=== PATIENT | male | born 1930 | race Caucasian/White ===

== ENCOUNTER 2016-11-19 09:37 | Emergency (ER) | payer MEDICARE, MEDICAID ==
[2016-11-19 12:29] VITALS: BP 184/69; PULSE 90; RESP 22; TEMP 97.7; O2SAT 98
== END 2016-11-19 12:37 | disposition home or self-care (01) ==
LOC: C.ER 09:37
DX: R31.9 Hematuria, unspecified (principal); R79.89 Other specified abnormal findings of blood chemistry; N40.0 Benign prostatic hyperplasia without lower urinary tract symptoms

== ENCOUNTER 2017-01-18 06:01 | Inpatient (IN) | payer MEDICARE, MEDICAID ==
[2016-12-31 09:08] VITALS: BMI 28.1
[2017-01-18] MEDS: Lidocaine 2% Jelly (Uro-Jet) ONE ×2 (07:47→12:42)
[2017-01-18] MEDS: cefTRIAXone IV 1 gm in Dextros 50 ML IVPB ONE ×2 (07:47→12:40)
[2017-01-18] MEDS ORDERED: Lactated Ringer's 500 ML IV ONE ×2 (07:47)
[2017-01-18] MEDS: Iohexol 240 (50 ml) ONE ×2 (07:48→12:42)
--- NOTE | 2017-01-18 13:26 | PCM.SURG1 ---
Surgeon's Initial Post Op Note - Surgeon's Notes Surgeon: Fred Ni Slot Host: none Type of Anesthesia: IV Sedation Pre-Operative Diagnosis: hematuria. azotemia Operative Findings: Urethral stricture. BPH. cystitis. bilat hydronephrosis Post-Operative Diagnosis: same Operation Performed: cysto. urethral dilation. bilat rtg pyelogram. bilat stent insertion. cystogram Specimen/Specimens Removed: urine Estimated Blood Loss: EBL {In ML}: 0 Blood Products Given: N/A Post-Op Condition: Good Date of Surgery/Procedure: 01/18/17 Time of Surgery/Procedure: 13:25
[2017-01-18] MEDS ORDERED: Propofol 10 mg/ml Inj (20 ML) ONE (13:30)
[2017-01-18] MEDS ORDERED: Etomidate 20 mg/10ml Inj IV ONE (13:32)
[2017-01-18] MEDS ORDERED: Sodium Chloride 0.9% 500 ML IV ONE (13:33)
[2017-01-18] MEDS ORDERED: HYDROmorphone 0.5 mg/0.5 ml ISec IVP PRN (13:47)
[2017-01-18] MEDS ORDERED: Sodium Chloride 0.9% 1,000 ML IV SCH (14:00)
--- NOTE | 2017-01-18 15:20 | RAD ---
PROCEDURE: Intraoperative Fluoroscopy. HISTORY: HEMATURIA FINDINGS: Fluoroscopic assistance was provided. 74.1 seconds fluoroscopy time utilized during this procedure. Radiation dose = 1.02 mGy.. Please
[2017-01-18] MEDS: Sodium Chloride 0.9% 1,000 ML IV SCH (19:20)
[2017-01-18] MEDS: HYDROmorphone 0.5 mg/0.5 ml ISec IVP PRN (19:39)
--- NOTE | 2017-01-18 19:41 | CP.PCM.CON ---
Past Patient History - Past Medical History & Family History Past Medical History?: Yes - Past Social History Smoking Status: Never Smoked - CARDIAC Hx Cardiac Disorders: Yes (CAD) Hx Hypercholesterolemia: Yes Hx Hypertension: Yes Hx Peripheral Vascular Disease: Yes - PULMONARY Hx Respiratory Disorders: Yes Hx Asthma: Yes Hx Chronic Obstructive Pulmonary Disease (COPD): Yes - NEUROLOGICAL Hx Neurological Disorder: Yes Hx Dementia: Yes - HEENT Hx HEENT Problems: Yes Hx Cataracts: Yes - RENAL Hx Chronic Kidney Disease: Yes Hx Renal Failure: Yes - ENDOCRINE/METABOLIC Hx Endocrine Disorders: Yes Hx Diabetes Mellitus Type 2: Yes - HEMATOLOGICAL/ONCOLOGICAL Hx Blood Disorders: No - INTEGUMENTARY Hx Dermatological Problems: No - MUSCULOSKELETAL/RHEUMATOLOGICAL Hx Musculoskeletal Disorders: No - GASTROINTESTINAL Hx Gastrointestinal Disorders: No - GENITOURINARY/GYNECOLOGICAL Hx Genitourinary Disorders: Yes Hx Prostate Problems: Yes - PSYCHIATRIC Hx Psychophysiologic Disorder: No Hx Substance Use: No - SURGICAL HISTORY Hx Surgeries: No - ANESTHESIA Hx Anesthesia: Yes Meds Allergies/Adverse Reactions: Allergies Allergy/AdvReac Type Severity Reaction Status Date / Time No Known Allergies Allergy Verified 11/19/16 10:07 - Medications Medications: Current Medications Amlodipine Besylate (Norvasc) 10 mg PO DAILY [facility] Clonidine HCl (Catapres) 0.1 mg PO Q6 PRN PRN Reason: SBP > 180 Hydromorphone HCl (Dilaudid) 0.5 mg IVP Q8H PRN PRN Reason: pain Last Admin: 01/18/17 19:39 Dose: 0.5 mg Sodium Chloride (Sodium Chloride 0.9%) 1,000 mls @ 50 mls/hr IV .Q20H [facility] Last Admin: 01/18/17 19:20 Dose: 50 mls/hr Insulin Human Regular (Novolin R) 0 unit SC ACHS [facility] PRN Reason: Protocol Physical Exam - Constitutional Appears: Well - Head Exam Head Exam: ATRAUMATIC, NORMAL INSPECTION, NORMOCEPHALIC - Eye Exam Eye Exam: EOMI, Normal appearance, PERRL Pupil Exam: NORMAL ACCOMODATION, PERRL - ENT Exam ENT Exam: Mucous Membranes Moist, Normal Exam - Neck Exam Neck exam: Positive for: Normal Inspection - Respiratory Exam Respiratory Exam: Decreased Breath Sounds - Cardiovascular Exam Cardiovascular Exam: REGULAR RHYTHM, +S1, +S2 - GI/Abdominal Exam GI & Abdominal Exam: Diminished Bowel Sounds, Soft - Rectal Exam Rectal Exam: Deferred Results - Vital Signs Recent Vital Signs: Last Vital Signs Temp 98.0 F 01/18/17 17:46 Pulse 85 01/18/17 17:46 Resp 20 01/18/17 17:46 BP 192/69 H 01/18/17 17:46 Pulse Ox 95 01/18/17 17:46 - Labs Labs: Laboratory Results - last 24 hr 01/18/17 01/18/17 08:30 16:42 POC Glucose (mg/dL) 83 154 H
[2017-01-18] MEDS ORDERED: (Novolin R) Insulin Human Regular 100 units/ml vial SC PRN (19:42)
--- NOTE | 2017-01-18 19:58 | RAD ---
HISTORY: HEMATURIA COMPARISON: No prior. FINDINGS: BOWEL: Normal. No obstruction. No free air. Moderate fecal loading is seen throughout the colon. BONES: Advanced degenerate disease seen throughout the visualized thoracolumbar spine. OTHER FINDINGS: Vascular calcifications are seen at the midline lower abdomen and bilateral pelvis soft tissues. Calcifications in the bilateral flanks are linear and not typical for urolithiasis. These may also be vascular. Consider follow-up unenhanced and pelvis CT for greater detail. IMPRESSION: Vascular calcifications appear linear the bilateral flanks and are not typical for urolithiasis however CT may be useful for greater detailed evaluation. Vascular calcifications more definite at the inferior abdomen and pelvis. Nonobstructive bowel gas pattern. No gross free intraperitoneal gas evident.
[2017-01-18] MEDS: (Novolin R) Insulin Human Regular 100 units/ml vial SC SCH (22:00)
[2017-01-18] MEDS: Ipratropium 0.02% Inhal Soln (0.5 mg/2.5 ml) UD IH SCH ×2 (22:42→23:34)
[2017-01-19] MEDS: Ipratropium 0.02% Inhal Soln (0.5 mg/2.5 ml) UD IH SCH ×5 (03:22→20:12)
--- NOTE | 2017-01-19 05:51 | HP ---
CHIEF COMPLAINT: Urinary problem. HISTORY OF PRESENT ILLNESS: Mr. Edson Combs is 86 years old male, resident of [facility] with multiple medical problems, history of coronary artery disease, hypertension, asthma, COPD, renal insufficiency, dementia, type 2 diabetes mellitus, was having problem with urine, was brought to [facility] for cystoscopy by Dr. Ni, but during analysis, Dr. Ni came to know the patient has hydronephrosis. Cystoscopy done, admitted the patient, patient is with renal failure. BUN is trending up. We called and consulted Dr. Sanjuanita Catherine. He saw the patient. PAST MEDICAL HISTORY: Prostate problem, renal insufficiency, coronary artery disease, hypercholesterolemia, hypertension, COPD, asthma, history of cataract. ALLERGIES: THE PATIENT IS NOT ALLERGIC WITH ANY MEDICATIONS. HABITS: No smoking, no drugs, no ethanol. FAMILY HISTORY: Noncontributory. REVIEW OF SYSTEMS: The patient was seen and examined on the bedside, looking comfortable. The patient is not a good historian. No fever, no chills. No nausea, vomiting or diarrhea. No headache, no dizziness. PHYSICAL EXAMINATION VITAL SIGNS: Temperature 98.0, pulse 85, respiratory rate 20, blood pressure 192/59, pulse oximetry 95. HEENT: Head, normocephalic and atraumatic. Eyes, PERRLA. Extraocular muscles intact. Conjunctivae clear. Nose patent. NECK: Supple. No carotid bruits. No JVD or thyromegaly. CHEST: Bilaterally symmetrical. HEART: S1 and S2 positive. LUNGS: Clear to auscultation. ABDOMEN: Soft. Bowel sounds positive. No organomegaly. EXTREMITIES: No edema. No cyanosis. NEUROLOGIC: The patient is awake and alert. Moving all 4 extremities. No focal deficits. MEDICATIONS: Reviewed by me. LABORATORY DATA: Sugar is 154. ASSESSMENT AND PLAN: Mr. Edson Combs is 86 years old male with history of asthma, hypertension, not very well controlled, seasonal allergies, coronary artery disease, benign prostatic hypertrophy, dementia, severe peripheral disease, came for cystoscopy with Dr. Ni. Discussion done with Dr. Ni. The patient admitted. The patient has history of hypercholesterolemia, history of cataract, diabetes mellitus. According to Dr. Marquita Ni, has urinary retention, urethral stricture, cystitis, hydronephrosis, urethral stricture was opened by Dr. Ni. The patient is seen by Dr. Cole Catherine, liquid waste treatment plant operator. Repeat labs and we will follow. Alondra Mcclelland MD [place]
[2017-01-19 07:20] LABS: HEMATOCRIT 32.4 % (35.0-51.0); MEAN CORPUSCULAR HEMOGLOBIN 27.7 pg (27.0-31.0); MEAN CORPUSCULAR HGB CONC 33.1 g/dL (33.0-37.0); MEAN PLATELET VOLUME 8.7 fL (7.2-11.7)
[2017-01-19 07:39] LABS: MEAN CELL VOLUME 83.5 fL (80.0-94.0)
[2017-01-19 08:04] LABS: POTASSIUM 5.4 mmol/L (3.6-5.2)
[2017-01-19 08:06] LABS: IRON 30 ug/dL (49-181)
[2017-01-19 08:07] LABS: CALCIUM 8.5 mg/dl (8.6-10.4)
[2017-01-19 08:28] LABS: THYROID STIMULATING HORMONE 1.91 mIU/L (0.46-4.68)
[2017-01-19] MEDS: (Novolin R) Insulin Human Regular 100 units/ml vial SC SCH ×5 (08:34→21:40)
[2017-01-19] MEDS: Fluticasone-Salmeterol 500-50mcg Diskus IH SCH ×2 (09:15→20:12)
[2017-01-19] MEDS: Fluticasone Nasal 50 mcg/Spray NS SCH (11:15)
--- NOTE | 2017-01-19 14:25 | CP.PCM.PN ---
Subjective - Date & Time of Evaluation Date of Evaluation: 01/19/17 Time of Evaluation: 11:20 - Subjective Subjective: clinically same Objective - Vital Signs/Intake and Output Vital Signs (last 24 hours): Temp Pulse Resp BP Pulse Ox 98.8 F 82 20 167/69 H 96 01/19/17 07:00 01/19/17 07:00 01/19/17 07:00 01/19/17 11:14 01/19/17 07:00 Intake and Output: 01/19/17 01/19/17 06:59 18:59 Intake Total 1300 Output Total 850 Balance 450 - Medications Medications: Current Medications Acetaminophen (Tylenol 325mg Tab) 650 mg PO Q4 PRN PRN Reason: Pain Amlodipine Besylate (Norvasc) 10 mg PO DAILY [facility] Last Admin: 01/19/17 11:15 Dose: 10 mg Aspirin (Ecotrin) 81 mg PO DAILY [facility] Last Admin: 01/19/17 11:14 Dose: 81 mg Clonidine HCl (Catapres) 0.1 mg PO Q6 PRN PRN Reason: SBP > 180 Enalapril Maleate (Vasotec) 10 mg PO BID [facility] Last Admin: 01/19/17 11:14 Dose: 10 mg Ergocalciferol (Drisdol 50,000 Intl Units Cap) 1 cap PO QWK [facility] Fluticasone Propionate (Flonase) 1 spr NS DAILY [facility] Last Admin: 01/19/17 11:15 Dose: 1 spr Furosemide (Lasix) 40 mg PO DAILY [facility] Last Admin: 01/19/17 11:14 Dose: 40 mg Hydromorphone HCl (Dilaudid) 0.5 mg IVP Q8H PRN PRN Reason: pain Last Admin: 01/18/17 19:39 Dose: 0.5 mg Sodium Chloride (Sodium Chloride 0.9%) 1,000 mls @ 50 mls/hr IV .Q20H [facility] Last Admin: 01/18/17 19:20 Dose: 50 mls/hr Insulin Human NPH (Novolin N) 10 unit SC ACD [facility] Insulin Human Regular (Novolin R) 0 unit SC ACHS [facility] PRN Reason: Protocol Last Admin: 01/19/17 12:47 Dose: 2 unit Insulin Human Regular (Novolin R) 0 unit SC ACHS PRN; Protocol PRN Reason: Serum glucose Ipratropium Alpha (Atrovent) 0.5 mg IH RQ4 [facility] Last Admin: 01/19/17 11:15 Dose: Not Given Lactulose (Enulose) 10 gm PO HS PRN PRN Reason: Constipation Lamotrigine (Lamictal) 25 mg PO BID [facility] Last Admin: 01/19/17 11:15 Dose: 25 mg Loratadine (Claritin) 10 mg PO QPM [facility] Memantine (Namenda) 5 mg PO BID [facility] Last Admin: 01/19/17 11:14 Dose: 5 mg Montelukast Sodium (Singulair) 10 mg PO QPM [facility] Fluticasone/Salmeterol (Advair Diskus 500/50) 1 puff IH RBID [facility] Last Admin: 01/19/17 09:15 Dose: Not Given Tamsulosin HCl (Flomax) 0.4 mg PO DAILY [facility] Last Admin: 01/19/17 11:14 Dose: 0.4 mg - Labs Labs: 01/19/17 07:06 01/19/17 07:06 - Constitutional Appears: Well - Head Exam Head Exam: ATRAUMATIC, NORMAL INSPECTION, NORMOCEPHALIC - Eye Exam Eye Exam: EOMI, Normal appearance, PERRL Pupil Exam: NORMAL ACCOMODATION, PERRL - ENT Exam ENT Exam: Mucous Membranes Moist, Normal Exam - Neck Exam Neck Exam: Full ROM, Normal Inspection. absent: Lymphadenopathy - Respiratory Exam Respiratory Exam: Decreased Breath Sounds - Cardiovascular Exam Cardiovascular Exam: REGULAR RHYTHM, +S1, +S2 - GI/Abdominal Exam GI & Abdominal Exam: Soft, Diminished Bowel Sounds - Rectal Exam Rectal Exam: Deferred
[2017-01-19] MEDS ORDERED: cefTRIAXone IV 1 gm in Dextros 1 GM in Dextrose 5% In Water 50 ML IVPB SCH (15:30)
[2017-01-19] MEDS: (Novolin N) Insulin Human Isophane (NPH) 100 u/ml 10 ml vial SC SCH (17:30)
[2017-01-19 18:29] LABS: RBC URINE 2105 /hpf (0-3); URINE BACTERIA MOD (<OCC); WBC CLUMPS FEW /hpf; WBC URINE 259 /hpf (0-5)
[2017-01-19 18:31] LABS: URINE BILIRUBIN NEGATIVE (NEGATIVE); URINE BLOOD LARGE (NEGATIVE); URINE COLOR LIGHT RED (YELLOW); URINE GLUCOSE (UA) NEGATIVE (Normal); URINE KETONE NEGATIVE (NEGATIVE)
[2017-01-19 18:32] LABS: URINE LEUKOCYTE ESTERASE MODERATE Leu/uL (Negative); URINE PROTEIN 100 mg/dL (NEGATIVE); URINE UROBILINOGEN 0.2 mg/dL (0.2-1.0)
[2017-01-19] MEDS: Sodium Chloride 0.9% 1,000 ML IV SCH (22:21)
--- NOTE | 2017-01-19 22:32 | PN ---
DATE: SUBJECTIVE: The patient is an 86-year-old male. The patient is seen and examined at the bedside early in the morning. Looking comfortable. No nausea or vomiting. No fever, no chills. No headache. No dizziness. No chest pain or palpation. Appetite is appropriate. PHYSICAL EXAMINATION: VITAL SIGNS: Temperature 97.5, pulse 81, blood pressure 141/68 and respiratory rate 20. HEENT: Head: Normocephalic and atraumatic. Eyes: PERRLA. Extraocular muscles intact. Conjunctivae clear. Nose patent. Mucous membrane moist. NECK: Supple. No carotid bruits or thyromegaly. CHEST: Bilaterally symmetrical. HEART: S1 and S2 positive. LUNGS: Clear to auscultation. ABDOMEN: Soft. Bowel sounds positive. No organomegaly. EXTREMITIES: No edema. No cyanosis. NEUROLOGICAL: The patient is awake and alert. Moving all four extremities. No focal deficits. LABORATORY DATA: We do not have recent lab today, but reviewed old labs. MEDICATIONS: Advair, Atrovent, Catapres, ceftriaxone, Claritin, Dilaudid, vitamin D, aspirin, Flomax, Flonase, Lamictal, Lasix, Namenda, Norvasc, Novolin, enalapril, acetaminophen, NS and Singulair. ASSESSMENT AND PLAN: Mr. Edson Combs is an 86-year-old male with anemia; hyperkalemia; hyperchloremia; renal insufficiency, design checker is on the case; obstructive uropathy; uncontrolled diabetes mellitus; hypocalcemia; has bilateral hydronephrosis, cystoscopy done by Dr. 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 The patient has severe urethral stricture, dilated by Dr. Ni , getting antibiotics for that. Followup treatment as per design checker and urologist, and repeat labs. We will follow. Alondra Mcclelland MD [facility]
[2017-01-20 00:24] LABS: BASO # 0.1 K/uL (0.0-0.2); EOS # 0.1 K/uL (0.0-0.7); EOS % 0.9 % (0.0-4.0); HEMATOCRIT 31.4 % (35.0-51.0); MEAN CELL VOLUME 83.7 fL (80.0-94.0); MEAN CORPUSCULAR HEMOGLOBIN 27.6 pg (27.0-31.0); MEAN PLATELET VOLUME 8.8 fL (7.2-11.7); MONO # 0.5 K/uL (0.0-0.8); MONO % 4.7 % (0.0-10.0); RED CELL DISTRIBUTION WIDTH 14.9 % (11.5-14.5); WHITE BLOOD COUNT 10.4 K/uL (4.8-10.8)
[2017-01-20 00:36] LABS: POTASSIUM 4.8 mmol/L (3.6-5.2)
[2017-01-20 00:38] LABS: BILIRUBIN,TOTAL 0.2 mg/dL (0.2-1.3); TOTAL PROTEIN 6.6 g/dL (6.3-8.3)
[2017-01-20] MEDS: Ipratropium 0.02% Inhal Soln (0.5 mg/2.5 ml) UD IH SCH ×6 (00:38→20:16)
[2017-01-20 00:39] LABS: CALCIUM 8.7 mg/dl (8.6-10.4)
[2017-01-20] MEDS: HYDROmorphone 0.5 mg/0.5 ml ISec IVP PRN (04:59)
[2017-01-20] MEDS: (Novolin R) Insulin Human Regular 100 units/ml vial SC SCH ×5 (07:50→22:28)
[2017-01-20] MEDS: Fluticasone-Salmeterol 500-50mcg Diskus IH SCH ×2 (08:33→20:16)
[2017-01-20] MEDS: Sodium Chloride 0.9% 1,000 ML IV SCH ×2 (10:00→22:32)
[2017-01-20] MEDS: Fluticasone Nasal 50 mcg/Spray NS SCH (10:46)
[2017-01-20] MEDS ORDERED: cefTRIAXone IV 1 gm in Dextros 50 ML IVPB SCH (15:30)
[2017-01-20] MEDS: (Novolin N) Insulin Human Isophane (NPH) 100 u/ml 10 ml vial SC SCH (17:14)
--- NOTE | 2017-01-20 18:01 | US ---
PROCEDURE: Ultrasound of the Kidneys HISTORY: RENAL FAILURE COMPARISON: None available. TECHNIQUE: Sonogram of the kidneys. FINDINGS: RIGHT KIDNEY: Measures approximately 10.8 x 5.1 x 4.6 cm. Normal in size and contour. The right renal parenchyma exhibits increased echogenicity suggesting underlying medical renal disease. Clinical correlation recommended. No stone, solid mass lesion or hydronephrosis visualized. LEFT KIDNEY: Measures approximately 10.7 x 4.5 x 4.9 cm. Normal in size and contour. The left renal parenchyma exhibits increased echogenicity suggesting underlying medical renal disease. Clinical correlation recommended No stone, solid mass lesion or hydronephrosis visualized. . There is a small cyst measuring approximately 1.1 cm in greatest dimension seen midpole left kidney OTHER FINDINGS: None. IMPRESSION: No evidence of nephrolithiasis or hydronephrosis. Kidneys demonstrate echogenic parenchyma suggesting underlying medical renal disease. Clinical correlation recommended. Small cyst midpole left kidney.
--- NOTE | 2017-01-20 20:24 | CP.PCM.PN ---
Subjective - Date & Time of Evaluation Date of Evaluation: 01/20/17 Objective - Vital Signs/Intake and Output Vital Signs (last 24 hours): Temp Pulse Resp BP Pulse Ox 98.3 F 82 20 130/70 93 L 01/20/17 15:58 01/20/17 15:58 01/20/17 15:58 01/20/17 17:14 01/20/17 15:58 Intake and Output: 01/20/17 01/21/17 18:59 06:59 Intake Total 700 Output Total 450 Balance 250 - Medications Medications: Current Medications Acetaminophen (Tylenol 325mg Tab) 650 mg PO Q4 PRN PRN Reason: Pain Amlodipine Besylate (Norvasc) 10 mg PO DAILY [facility] Last Admin: 01/20/17 10:40 Dose: 10 mg Aspirin (Ecotrin) 81 mg PO DAILY [facility] Last Admin: 01/20/17 10:39 Dose: 81 mg Clonidine HCl (Catapres) 0.1 mg PO Q6 PRN PRN Reason: SBP > 180 Enalapril Maleate (Vasotec) 10 mg PO BID [facility] Last Admin: 01/20/17 17:14 Dose: 10 mg Ergocalciferol (Drisdol 50,000 Intl Units Cap) 1 cap PO QWK [facility] Fluticasone Propionate (Flonase) 1 spr NS DAILY [facility] Last Admin: 01/20/17 10:46 Dose: 1 spr Furosemide (Lasix) 40 mg PO DAILY [facility] Last Admin: 01/20/17 10:39 Dose: 40 mg Hydromorphone HCl (Dilaudid) 0.5 mg IVP Q8H PRN PRN Reason: pain Last Admin: 01/20/17 04:59 Dose: 0.5 mg Sodium Chloride (Sodium Chloride 0.9%) 1,000 mls @ 50 mls/hr IV .Q20H [facility] Last Admin: 01/20/17 10:00 Dose: Not Given Ceftriaxone Sodium (Rocephin Iv 1 Gm Duplex) 50 mls @ 50 mls/30 min IVPB Q24H [facility] Last Admin: 01/20/17 14:45 Dose: 50 mls/30 min Insulin Human NPH (Novolin N) 10 unit SC ACD [facility] Last Admin: 01/20/17 17:14 Dose: 10 unit Insulin Human Regular (Novolin R) 0 unit SC ACHS [facility] PRN Reason: Protocol Last Admin: 01/20/17 17:22 Dose: Not Given Insulin Human Regular (Novolin R) 0 unit SC ACHS PRN; Protocol PRN Reason: Serum glucose Ipratropium [place] (Atrovent) 0.5 mg IH RQ4 [facility] Last Admin: 01/20/17 20:16 Dose: 0.5 mg Lactulose (Enulose) 10 gm PO HS PRN PRN Reason: Constipation Lamotrigine (Lamictal) 25 mg PO BID [facility] Last Admin: 01/20/17 10:40 Dose: 25 mg Loratadine (Claritin) 10 mg PO QPM [facility] Last Admin: 01/20/17 17:14 Dose: 10 mg Memantine (Namenda) 5 mg PO BID [facility] Last Admin: 01/20/17 17:14 Dose: 5 mg Montelukast Sodium (Singulair) 10 mg PO QPM [facility] Last Admin: 01/20/17 17:14 Dose: 10 mg Fluticasone/Salmeterol (Advair Diskus 500/50) 1 puff IH RBID [facility] Last Admin: 01/20/17 20:16 Dose: 1 puff Tamsulosin HCl (Flomax) 0.4 mg PO DAILY [facility] Last Admin: 01/20/17 10:38 Dose: 0.4 mg - Labs Labs: 01/20/17 00:16 01/20/17 00:16 Assessment and Plan - Assessment and Plan (Free Text) Plan: Hemoglobin 10.4 sodium of 4.8 creatinine 3.4 albumin 3.3 Urine total protein 3920 C3-C4 unremarkable and Renal sonogram no evidence of nephrolithiasis or hydronephrosis Small cyst in the midpole left kidney
--- NOTE | 2017-01-21 00:32 | PN ---
DATE: SUBJECTIVE: The patient was seen and examined on the bedside, looking comfortable. No nausea, vomiting or diarrhea. No hematuria or hematochezia. No swelling of the legs. No chest pain or palpitations. No headache or dizziness. No fever. No chills. PHYSICAL EXAMINATION: VITAL SIGNS: Temperature 98.3, pulse 82, blood pressure 130/70, respiratory rate 20. HEENT: Head is normocephalic and atraumatic. Eyes; PERRLA. Extraocular muscles intact. Conjunctivae clear. Nose patent. Mucous membrane moist. NECK: Supple. No carotid bruits, JVD, or thyromegaly. CHEST: Bilaterally symmetrical. HEART: S1 and S2 positive. LUNGS: Clear to auscultation. ABDOMEN: Soft. Bowel sounds are present. No organomegaly. EXTREMITIES: No edema and no cyanosis. NEUROLOGIC: The patient is awake and alert. Moving all four extremities. No focal deficits. MEDICATIONS: Advair, Atrovent, Catapres, Claritin, Dilaudid, vitamin D, Ecotrin, lactulose, Flomax, Flonase, Lamictal, Lasix, Namenda, Norvasc, insulin, Rocephin, Singulair, Tylenol, and Vasotec. LABORATORY DATA: White blood cell 10.4, hemoglobin 10.4, hematocrit 31.4, and platelets 156. Sodium 141, potassium 4.8, BUN 51, creatinine 3.4, glucose 133. ASSESSMENT AND PLAN: Mr. Edson Combs is 86 years old male with anemia, renal insufficiency, insulin dependent diabetes mellitus, urinary tract infection, history of severe peripheral vascular disease, amputation of the above knee, severe anemia, renal biopsy shows no evidence of nephrolithiasis or hydronephrosis. Small cyst in the mid pole of the kidney. The patient has dementia, but very early stages. He came for cystoscopy, has cystitis. Shuttler and urologist on the case. The patient has obstructive uropathy, there was urethral stricture dilated by the urologist. Gastrointestinal [place]. Repeat labs. We will follow up. Alondra Mcclelland MD
[2017-01-21] MEDS: Ipratropium 0.02% Inhal Soln (0.5 mg/2.5 ml) UD IH SCH ×4 (00:47→11:01)
[2017-01-21] MEDS: (Novolin R) Insulin Human Regular 100 units/ml vial SC SCH ×2 (07:40→11:40)
--- NOTE | 2017-01-21 07:45 | OP ---
PROCEDURE DATE: 01/18/2017 PREOPERATIVE DIAGNOSES: 1. Azotemia. 2. Hematuria. POSTOPERATIVE DIAGNOSES: 1. Azotemia. 2. Hematuria. 3. Urinary retention. 4. Urethral stricture. 5. Bilateral hydronephrosis. PROCEDURE: 1. Cystoscopy. 2. Urethral dilation. 3. Bilateral retrograde pyelogram. 4. Bilateral ureteral stent insertion. 5. Cystogram. SURGEON: Marquita Ni MD DESCRIPTION OF PROCEDURE: Procedure was formed under video endoscopic control as well as under fluoroscopic control. Machine Tool Builder film of the abdomen was obtained. The patient was placed in the lithotomy position. Genitalia prepped and draped sterilely. Perioperative antibiotics were administered. A 22-Malian cystoscope sheath was introduced per urethra. There was noted to be stricture in the bulbous urethra. There is a tight dense stricture. The ureteral catheter was passed under direct vision through the stricture into the bladder. The stricture was dilated by pass of the 22-Malian cystoscope sheath over the catheter. The stricture was noted to be dense and tightly. The urethra and prostate were inspected. It was noted to be obstructing prostatic tissue. There is no bladder neck contracture. The prostatic urethra was approximately 2.5 cm length. The bladder was inspected. There is marked bladder trabeculation. There were bladder diverticula as well, which were inspected. There was diffuse marked cystitis. The volume within the bladder was approximately 500 mL. The ureteral orifices were identified. The orifices were noted to be mild laterally displaced and as well as mildly patulous. Iodinated contrast dye was instilled via a cone-tip catheter into the left ureteral orifice. There was noted to be moderate distal left hydronephrosis. The catheter cannot be inserted more proximally. A right retrograde pyelogram also demonstrated [id number] hydronephrosis. The 0.035 inch guidewire was inserted into the right ureteral orifice and passed up to the level of the kidney. Open-end catheter was used to perform retrograde ureteropyelogram. The retrograde pyelogram demonstrated moderate hydronephrosis. There was hydronephrotic drip obtained as well. A 6-Malian multi-length stent was inserted over the guidewire. Proper stent position within the right kidney was confirmed with fluoroscopy and endoscopy. Attention was then returned toward the left side. Open-ended catheter and guidewire were used to pass both to the level of the kidney. Retrograde pyelogram demonstrated [id number] hydronephrosis. The guidewire was reinserted. A 6-Malian multi-length stent was inserted over the guidewire. Proper stent position was confirmed with fluoroscopy and endoscopy. The cystoscope sheath removed. The guidewire had been reinserted through the cystoscope and clogged within the bladder. A 16-Malian Councill catheter was inserted over the guidewire. Proper position in the bladder was confirmed with performance of a cystogram under fluoroscopic control. The guidewire was removed. The Kendrick catheter was left in place. The bladder was drained. Bladder drainage was clear. Exam under anesthesia was performed. There was no abnormal pelvic mass fixation or induration. Prostate was smooth, approximately 25 g in size, without fixation, induration, or nodularity. The patient tolerated the procedure without complication. Marquita Ni MD cc: MD Alondra Gray MD Jayeshkumar Patel, MD
[2017-01-21 08:37] VITALS: PULSE 90; RESP 18; TEMP 97.5; O2SAT 95
[2017-01-21] MEDS: Fluticasone Nasal 50 mcg/Spray NS SCH (10:05)
--- NOTE | 2017-01-21 10:24 | CP.PCM.PN ---
Subjective - Date & Time of Evaluation Date of Evaluation: 01/21/17 Time of Evaluation: 10:29 - Subjective Subjective: Pt seen and examined at bedside this AM; offers no complaints. Objective - Vital Signs/Intake and Output Vital Signs (last 24 hours): Temp Pulse Resp BP Pulse Ox 97.5 F L 90 18 172/74 H 95 01/21/17 07:05 01/21/17 07:05 01/21/17 07:05 01/21/17 10:06 01/21/17 07:05 Intake and Output: 01/21/17 01/21/17 06:59 18:59 Intake Total 1200 Output Total 300 400 Balance 900 -400 - Medications Medications: Current Medications Acetaminophen (Tylenol 325mg Tab) 650 mg PO Q4 PRN PRN Reason: Pain Amlodipine Besylate (Norvasc) 10 mg PO DAILY [facility] Last Admin: 01/21/17 10:05 Dose: 10 mg Aspirin (Ecotrin) 81 mg PO DAILY [facility] Last Admin: 01/21/17 10:06 Dose: 81 mg Clonidine HCl (Catapres) 0.1 mg PO Q6 PRN PRN Reason: SBP > 180 Enalapril Maleate (Vasotec) 10 mg PO BID [facility] Last Admin: 01/21/17 10:05 Dose: 10 mg Ergocalciferol (Drisdol 50,000 Intl Units Cap) 1 cap PO QWK [facility] Fluticasone Propionate (Flonase) 1 spr NS DAILY [facility] Last Admin: 01/21/17 10:05 Dose: 1 spr Furosemide (Lasix) 40 mg PO DAILY [facility] Last Admin: 01/21/17 10:06 Dose: 40 mg Hydromorphone HCl (Dilaudid) 0.5 mg IVP Q8H PRN PRN Reason: pain Last Admin: 01/20/17 04:59 Dose: 0.5 mg Sodium Chloride (Sodium Chloride 0.9%) 1,000 mls @ 50 mls/hr IV .Q20H [facility] Last Admin: 01/20/17 22:32 Dose: 50 mls/hr Ceftriaxone Sodium (Rocephin Iv 1 Gm Duplex) 50 mls @ 50 mls/30 min IVPB Q24H [facility] Last Admin: 01/20/17 14:45 Dose: 50 mls/30 min Insulin Human NPH (Novolin N) 10 unit SC ACD [facility] Last Admin: 01/20/17 17:14 Dose: 10 unit Insulin Human Regular (Novolin R) 0 unit SC ACHS [facility] PRN Reason: Protocol Last Admin: 01/21/17 07:40 Dose: Not Given Insulin Human Regular (Novolin R) 0 unit SC ACHS PRN; Protocol PRN Reason: Serum glucose Ipratropium [place] (Atrovent) 0.5 mg IH RQ4 [facility] Last Admin: 01/21/17 07:18 Dose: Not Given Lactulose (Enulose) 10 gm PO HS PRN PRN Reason: Constipation Lamotrigine (Lamictal) 25 mg PO BID [facility] Last Admin: 01/21/17 10:05 Dose: 25 mg Loratadine (Claritin) 10 mg PO QPM [facility] Last Admin: 01/20/17 17:14 Dose: 10 mg Memantine (Namenda) 5 mg PO BID [facility] Last Admin: 01/21/17 10:06 Dose: 5 mg Montelukast Sodium (Singulair) 10 mg PO QPM [facility] Last Admin: 01/20/17 17:14 Dose: 10 mg Fluticasone/Salmeterol (Advair Diskus 500/50) 1 puff IH RBID [facility] Last Admin: 01/20/17 20:16 Dose: 1 puff Tamsulosin HCl (Flomax) 0.4 mg PO DAILY [facility] Last Admin: 01/21/17 10:06 Dose: 0.4 mg - Labs Labs: 01/20/17 00:16 01/20/17 00:16 - Constitutional Appears: Non-toxic - Head Exam Head Exam: ATRAUMATIC - Eye Exam Eye Exam: EOMI - ENT Exam ENT Exam: Mucous Membranes Moist - Neck Exam Neck Exam: Full ROM - Respiratory Exam Respiratory Exam: Clear to Ausculation Bilateral - Cardiovascular Exam Cardiovascular Exam: REGULAR RHYTHM - GI/Abdominal Exam GI & Abdominal Exam: Normal Bowel Sounds - Extremities Exam Extremities Exam: absent: Calf Tenderness - Back Exam Back Exam: absent: CVA tenderness (L), CVA tenderness (R) - Neurological Exam Neurological Exam: Awake - Skin Skin Exam: Warm Assessment and Plan - Assessment and Plan (Free Text) Assessment: JAE on CKD -Supervisor Shuttle Fitting up to 3.5 from 2.1 (2011) -BUN elevated as well -Urine Cytology negative for malignancy -s/p cystcopy and possible possible; f/u results -will trend chemistry, lytes Anemia;chronic and improved from previous -will monitor CAD -c/w current medical management HTN -c/w current medical management COPD Dementia -will monitor -already in alf DM2 -c/w insulin Prophylaxis Pepcid PO daily SCD Consistent carbohydrate diet All management as per Dr. Florin Benavidez PGY2
[2017-01-21] MEDS: Fluticasone-Salmeterol 500-50mcg Diskus IH SCH (11:01)
--- NOTE | 2017-01-21 12:04 | PCM.URO ---
Urology Progress Note - General General: No Complaints, Tolerating Diet - Subjective Abdominal Pain: No Flank Pain: No Nausea: No Vomiting: No Voiding Well: No (CATHETER IN PLACE) Hematuria: No Dsypnea: No Chest Pain: No - Objective Lab Studies: Reviewed (azotemia, proteinuria, hyperglycemia) Lab Results Last 24 Hours: Laboratory Results - last 24 hr 01/19/17 01/20/17 01/20/17 07:06 12:04 17:18 POC Glucose (mg/dL) 147 H 133 H Hemoglobin A1c 7.0 H Urine Collection Time Urine Total Volume Ur Protein 24 Hr Calc 01/20/17 01/20/17 01/21/17 19:40 21:31 06:18 POC Glucose (mg/dL) 262 H 93 Hemoglobin A1c Urine Collection Time 24 Urine Total Volume 1400 Ur Protein 24 Hr Calc 3920.0 H 01/21/17 11:21 POC Glucose (mg/dL) 134 H Hemoglobin A1c Urine Collection Time Urine Total Volume Ur Protein 24 Hr Calc Intake & Output: Intake & Output 01/20/17 01/21/17 01/21/17 18:59 06:59 18:59 Intake Total 700 1200 Output Total 450 300 400 Balance 250 900 -400 Intake: Intake, IV Amount 400 800 Right Forearm 400 800 Oral 300 400 Output: Urine 450 300 400 Urethral (Kendrick) 450 300 400 Other: # Bowel Movements 0 Vital Signs: Vital Signs - 24 hr 01/20/17 01/20/17 01/20/17 15:58 17:14 23:40 Temperature 98.3 F 98.1 F Pulse Rate 82 92 H Respiratory 20 20 Rate Blood Pressure 151/62 H 130/70 143/70 O2 Sat by Pulse 93 L 97 Oximetry 01/21/17 01/21/17 01/21/17 04:05 07:05 10:05 Temperature 98.5 F 97.5 F L Pulse Rate 86 90 Respiratory 20 18 Rate Blood Pressure 158/64 H 177/65 H 172/74 H O2 Sat by Pulse 95 Oximetry 01/21/17 10:06 Temperature Pulse Rate Respiratory Rate Blood Pressure 172/74 H O2 Sat by Pulse Oximetry - Physical Exam Abdominal Exam: Soft, Non-Tender, Non-Distended Bowel Sounds: Normal Back: No CVA Tenderness Genitalia: Without Inflammation Urinary Catheter Draining Well: Yes Urine Color: Clear, Yellow - Male Phallus: Normal Scrotum: Normal - Plan Catheter Care: Yes Ambulation - Out of Bed: Yes Intake & Output: Yes Additional Information: Imp: stable p cysto, urethal dilation, bilat stent insertion. retention. uterthal stricture. hydronephrosis - Date & Time of Note Date: 01/21/17 Time: 12:06
[2017-01-21 12:59] VITALS: BP 173/70
[2017-01-21 13:58] LABS: BASO % 0.3 % (0.0-2.0); EOS # 0.3 K/uL (0.0-0.7); EOS % 3.5 % (0.0-4.0); HEMATOCRIT 32.6 % (35.0-51.0); LYMPH # 1.6 K/uL (1.0-4.3); LYMPH % 16.8 % (20.0-40.0); MEAN CELL VOLUME 83.8 fL (80.0-94.0); MEAN CORPUSCULAR HEMOGLOBIN 27.7 pg (27.0-31.0); MEAN CORPUSCULAR HGB CONC 33.1 g/dL (33.0-37.0); MEAN PLATELET VOLUME 8.8 fL (7.2-11.7); MONO # 0.5 K/uL (0.0-0.8); MONO % 5.1 % (0.0-10.0); WHITE BLOOD COUNT 9.3 K/uL (4.8-10.8)
[2017-01-21 14:20] LABS: POTASSIUM 4.3 mmol/L (3.6-5.2)
[2017-01-21 14:22] LABS: BILIRUBIN,TOTAL 0.2 mg/dL (0.2-1.3); TOTAL PROTEIN 6.4 g/dL (6.3-8.3)
[2017-01-21 14:23] LABS: CALCIUM 9.1 mg/dl (8.6-10.4)
[2017-01-25] MEDS ORDERED: Ergocalciferol 50,000 Intl Units Cap PO SCH (10:00)
== END 2017-01-21 14:47 | DRG 697 ==
LOC: C.SDS 06:01 → C.9S 13:38 → C.6T 17:19
PROVIDERS: ADMIT Internal Medicine; ATTEND Internal Medicine
PROC: 0T788DZ Dilation of Bilateral Ureters with Intraluminal Device, Via Natural or Artificial Opening Endoscopic (ICD-10-PCS; 2017-01-18)
PROC: BT14ZZZ Fluoroscopy of Kidneys, Ureters and Bladder (ICD-10-PCS; 2017-01-18)
PROC: 0T7D8ZZ Dilation of Urethra, Via Natural or Artificial Opening Endoscopic (ICD-10-PCS; principal; 2017-01-18 07:30)
DX: N35.8 Other urethral stricture (principal); N17.9 Acute kidney failure, unspecified; E11.22 Type 2 diabetes mellitus with diabetic chronic kidney disease; F03.90 Unspecified dementia, unspecified severity, without behavioral disturbance, psychotic disturbance, mood disturbance, and anxiety; E11.51 Type 2 diabetes mellitus with diabetic peripheral angiopathy without gangrene; N30.01 Acute cystitis with hematuria; N13.39 Other hydronephrosis; N40.1 Benign prostatic hyperplasia with lower urinary tract symptoms; E11.65 Type 2 diabetes mellitus with hyperglycemia; E87.5 Hyperkalemia; J44.9 Chronic obstructive pulmonary disease, unspecified; I12.9 Hypertensive chronic kidney disease with stage 1 through stage 4 chronic kidney disease, or unspecified chronic kidney disease; N18.9 Chronic kidney disease, unspecified; I25.10 Atherosclerotic heart disease of native coronary artery without angina pectoris; E87.8 Other disorders of electrolyte and fluid balance, not elsewhere classified; D64.9 Anemia, unspecified; J45.909 Unspecified asthma, uncomplicated; E83.51 Hypocalcemia; E78.00 Pure hypercholesterolemia, unspecified; Z79.4 Long term (current) use of insulin; Z89.512 Acquired absence of left leg below knee; Z98.49 Cataract extraction status, unspecified eye

== ENCOUNTER 2017-03-18 07:29 | Day surgery (SDC) | payer MEDICARE, MEDICAID ==
[2016-12-31 09:08] VITALS: BMI 28.1
[2017-03-18 09:24] LABS: CALCIUM 8.9 mg/dl (8.6-10.4); POTASSIUM 4.8 mmol/L (3.6-5.2)
[2017-03-18] MEDS ORDERED: Lidocaine 2% Jelly (Uro-Jet) ONE (09:32)
[2017-03-18] MEDS ORDERED: cefTRIAXone IV 1 gm in Dextros 50 ML IVPB ONE (09:32)
[2017-03-18] MEDS ORDERED: Lactated Ringer's 1,000 ML IV ONE (09:45)
[2017-03-18] MEDS ORDERED: Propofol 10 mg/ml Inj (20 ML) ONE (09:47)
[2017-03-18] MEDS ORDERED: Midazolam 2 MG/2 ML VIAL ONE (09:47)
[2017-03-18] MEDS ORDERED: Iohexol 240 (50 ml) ONE (09:55)
[2017-03-18] MEDS ORDERED: Phenylephrine 10 mg/ml Inj ONE (10:12)
[2017-03-18] MEDS ORDERED: Etomidate 20 mg/10ml Inj IV ONE (10:12)
--- NOTE | 2017-03-18 10:23 | PCM.SURG1 ---
Surgeon's Initial Post Op Note - Surgeon's Notes Surgeon: [place] Oxyhydrogen Welder: none Type of Anesthesia: General Mask Pre-Operative Diagnosis: hydronephrosis Operative Findings: same. cystitis. urethral stricture Post-Operative Diagnosis: same Operation Performed: cysto. urethral dilation. removal of ureteral stents. rtg pyelogram. cystogram Specimen/Specimens Removed: urine. stents Estimated Blood Loss: EBL {In ML}: 0 Blood Products Given: N/A Date of Surgery/Procedure: 03/18/17 Time of Surgery/Procedure: 10:15
[2017-03-18 12:36] VITALS: PULSE 81; RESP 16; O2SAT 95
[2017-03-18 12:41] VITALS: BP 145/57; TEMP 97.5
--- NOTE | 2017-03-18 15:50 | RAD ---
PROCEDURE: Intraoperative Fluoroscopy. HISTORY: HYDRONEPHROSIS FINDINGS: Fluoroscopic assistance was provided. 33.2 seconds fluoroscopy time utilized during this procedure. Radiation dose = 0.35505 mGy-cm.
--- NOTE | 2017-03-18 17:43 | RAD ---
HISTORY: HYDRONEPHROSIS COMPARISON: No prior. FINDINGS: BOWEL: Moderate amount of stool seen within the rectosigmoid partially obscures the bladder region BONES: Multilevel degenerative spondylosis of the lumbar and lower thoracic spine. OTHER FINDINGS: Bilateral ureteral stents are present in good position. . Re- demonstrated are several tiny calcific like densities seen overlying the upper pole right kidney though these densities have diminished in number compared the prior exam. There also appear to be a few tiny calcific densities overlying the expected location of the left kidney. There is a small rounded calcification overlying the left inferior true pelvis likely representing calcified pelvic phlebolith. Mild vascular calcifications. IMPRESSION: In situ bilateral ureteral stents. Few small calcifications overlying the suspected upper pole both kidneys as above
--- NOTE | 2017-03-21 01:51 | OP ---
PROCEDURE DATE: 03/18/2017 PREOPERATIVE DIAGNOSES: Hydronephrosis. History of urethral stricture. History of urinary retention. POSTOPERATIVE DIAGNOSES: Mild urethral stricture. Cystitis. Hydronephrosis. PROCEDURES: Cystoscopy. Urethral dilation. Bilateral retrograde pyelogram. Bilateral stent removal. Cystogram. OPERATING SURGEON: Marquita Ni MD DESCRIPTION OF PROCEDURE: As follows; the patient received perioperative antibiotics. The patient was placed in lithotomy position. Procedure was performed under video endoscopic control as well as under fluoroscopic control. A 22-[place]an cystoscope sheath was introduced per urethra. There was a bulbous urethral stricture. The ureteral guidewire and catheter were inserted through the stricture into the bladder. The urethral stricture was dilated by pass of the 22-[place]an scope. There was mild prostatic hypertrophy, which was subocclusive. There was no bladder neck contraction. There was a moderate inflammation of the bladder. There were no bladder tumor identified. There was moderate to marked inflammation within the bladder. The residual within the bladder was approximately 100 mL. Urine sent for bacteriologic examination. There was no bladder tumor. There was no bladder stone. The ureteral stents were individually removed. The stent was grasped with rigid grasping forceps. The attention was first turned to the right ureteral stent. The stent was delivered through cystoscope sheath to the level of the meatus. A 0.035-inch guidewire was inserted into the ureteral stent, passed up to level the right kidney. The open-ended catheter was inserted over the guidewire. Retrograde pyelogram demonstrated moderate to marked hydroureteronephrosis. The stent was removed. Similar procedure was performed on left side. The stent had been removed completely and wire could not be negotiated back into the kidney. Inspection of the bladder revealed a markedly dilated right ureteral orifice. Retrograde pyelogram demonstrated moderate left hydroureteronephrosis. The removed. The bladder was reinspected with 70-degree lens and confirmed the above findings. The ureteral catheter was inserted into the bladder through the cystoscope. The cystoscope and sheath were removed. A 18-[place] catheter was inserted over the ureteral catheter which served as a guide to introduce the catheter into the bladder. The cystogram was performed. Iodinated contrast dye was instilled via the Kendrick catheter. The catheter position was confirmed within the bladder. The bladder was drained. Rectal examination was performed. Prostate was smooth and firm approximately 20 g in size without fixation or nodularity. There was moderate induration. The patient was returned to supine position. Bladder drainage was clear. The patient tolerated the procedure without complication. Marquita Ni MD cc: Patient's chart and [facility].
== END 2017-03-18 13:37 | disposition home or self-care (01) ==
LOC: C.SDS 07:29
PROVIDERS: ATTEND Urology
DX: N20.9 Urinary calculus, unspecified (principal); N35.9 Urethral stricture, unspecified; N13.30 Unspecified hydronephrosis; N30.90 Cystitis, unspecified without hematuria
CPT/HCPCS: 36415; 52281; 74000; 80048; 82948; 87086; C1769; J0696; J7120

== ENCOUNTER 2018-05-05 09:45 | Outpatient (CLI) | payer MEDICARE, MEDICAID | END 2018-05-05 09:46 | disposition home or self-care (01) | LOC: C.VASC 09:45 ==

== ENCOUNTER 2018-05-07 08:29 | Day surgery (SDC) | payer MEDICARE, MEDICAID ==
[2018-05-02 12:55] VITALS: BMI 23.9
[~2018-05-07 08:29] MED LIST: HEPARIN-NS 5,000 UNITS/500 ML 5,000 UNIT/500 ML BAG IV ONE; ceFAZolin 1 gm in NS 0 GM/0 ML BAG IVPB ONE
[2018-05-07] MEDS ORDERED: ceFAZolin 1 gm in NS 1 GM/100 ML BAG IVPB ONE (10:11)
[2018-05-07] MEDS ORDERED: Propofol 10 mg/ml Inj (20 ML) ONE ×2 (10:34→13:29)
[2018-05-07] MEDS ORDERED: Rocuronium 10 mg/ml (10 ml) ONE ×2 (13:28→14:10)
[2018-05-07] MEDS ORDERED: Phenylephrine 10 mg/ml Inj ONE (13:41)
[2018-05-07] MEDS ORDERED: ePHEDrine 50 mg/ml Inj ONE (13:43)
[2018-05-07] MEDS ORDERED: Neostigmine 1:1000 (1 mg/ml) Inj ONE (14:51)
[2018-05-07] MEDS ORDERED: HYDROmorphone 0.5 mg/0.5 ml ISec IVP PRN (15:18)
--- NOTE | 2018-05-07 15:20 | PCM.SURG1 ---
Surgeon's Initial Post Op Note - Surgeon's Notes Surgeon: Dr. Correa Haulage Boss: Dr. Deleon Type of Anesthesia: General Endo Pre-Operative Diagnosis: ESRD Operative Findings: see operative note Post-Operative Diagnosis: same Operation Performed: Left arm AV fistula Specimen/Specimens Removed: none Estimated Blood Loss: EBL {In ML}: 20 Blood Products Given: N/A Drains Used: No Drains Post-Op Condition: Good Date of Surgery/Procedure: 05/07/18 Time of Surgery/Procedure: 15:19
[2018-05-07 16:51] VITALS: PULSE 96; RESP 22; TEMP 98.5
[2018-05-07 17:05] VITALS: BP 123/69; O2SAT 98
--- NOTE | 2018-05-08 02:20 | OP ---
PROCEDURE DATE: 05/07/2018 PREOPERATIVE DIAGNOSIS: Renal failure. POSTOPERATIVE DIAGNOSIS: Renal failure. PROCEDURE PERFORMED: Brachiobasilic fistula, left elbow. SURGEON: Ramses Correa Jr., MD FORENSIC DNA ANALYST: Dr. Pancho aSxena. ANESTHESIOLOGIST: Aaliyah Kim MD INDICATIONS: The patient is an elderly male with renal insufficiency, presently ____ of a catheter. Preoperative vein mapping did not reveal any adequate veins in the OR. However, our immediate preoperative vein mapping revealed there was a fairly good basilic vein. Because of this, we created a fistula between the end of the basiclic vein at the elbow and the adjacent brachial artery. At the end of the procedure, there was good flow through the fistula and there was a palpable pulse at the wrist. DESCRIPTION OF PROCEDURE: The patient was given general anesthesia and intravenous antibiotics. The veins were mapped mentioned. Incision was made between the artery and the vein. This was then anastomosed in an end-to-side spatulated fashion using loupe magnification, heparin anticoagulation, and loupe control. After completion of the anastomoses, there was good flow in both directions, and the procedure was terminated. The heparin was now reversed. The skin was closed with 5-0 nylon sutures. The operation carried out, brachiobasilic fistula, left elbow. Ramses Correa Jr., MD cc: MD Alondra Hollingsworth MD
== END 2018-05-07 17:11 | disposition home or self-care (01) ==
LOC: C.SDS 08:29
PROVIDERS: ATTEND Surgery Vascular Surgery
DX: N18.6 End stage renal disease (principal)
CPT/HCPCS: 36821; 82948; C1769; J0690; J1644; J2001; J2370; J2704; J2710; J3010; J7040

== ENCOUNTER 2018-07-02 07:47 | Day surgery (SDC) | payer MEDICARE ==
[2018-06-27 14:24] VITALS: BMI 23.8
[~2018-07-02 07:47] MED LIST changes: +HEPARIN-NS 5,000 UNITS/500 ML 0 UNIT/0 ML BAG IV ONE; -HEPARIN-NS 5,000 UNITS/500 ML 5,000 UNIT/500 ML BAG IV ONE; -ceFAZolin 1 gm in NS 0 GM/0 ML BAG IVPB ONE; +ceFAZolin 1 gm in NS 1 GM/100 ML BAG IVPB ONE
[2018-07-02 09:36] VITALS: BP 110/47; PULSE 62; RESP 10; TEMP 98.2; O2SAT 97
[2018-07-02] MEDS ORDERED: Propofol 10 mg/ml Inj (20 ML) ONE (11:57)
[2018-07-02] MEDS ORDERED: Lidocaine Hydrochloride 5 ML INJ ONE (12:00)
[2018-07-02] MEDS ORDERED: ePHEDrine 50 mg/ml Inj ONE (12:45)
[2018-07-02] MEDS ORDERED: Phenylephrine 10 mg/ml Inj ONE (12:45)
[2018-07-02] MEDS ORDERED: HYDROmorphone 0.5 mg/0.5 ml ISec IVP PRN (13:30)
--- NOTE | 2018-07-02 13:31 | PCM.SURG1 ---
Surgeon's Initial Post Op Note - Surgeon's Notes Surgeon: MD Madeline Aerodynamicist: Page PGY3 Pre-Operative Diagnosis: Left arm AF fistula Operative Findings: Left arm AF fistula. Left arm basillic vein Post-Operative Diagnosis: Left arm AF fistula Operation Performed: Revision of Left arm AV fistula. Transposition of left basillic vein Specimen/Specimens Removed: none Estimated Blood Loss: EBL {In ML}: 25 Date of Surgery/Procedure: 07/02/18 Time of Surgery/Procedure: 12:00
--- NOTE | 2018-07-02 23:46 | OP ---
PROCEDURE DATE: 07/02/2018 PREOPERATIVE DIAGNOSIS: Mature fistula, left arm. POSTOPERATIVE DIAGNOSIS: Mature fistula, left arm. PROCEDURE CARRIED OUT: Revision of arteriovenous fistula with creation of basilic vein transposition fistula of left arm. SURGEON: Ramses Correa Jr., MD WEBSPHERE PROCESS SERVER DEVELOPER: . ANESTHESIOLOGIST: Glenn Perrin MD INDICATIONS: The patient is an older man with renal insufficiency, presently dialyzing by means of a catheter. DESCRIPTION OF PROCEDURE: The fistula was created in his left arm previously. This was in very good size and shape. We were able to dissect this out from the elbow to the axilla. We then elevated into the subcutaneous position and then closed the skin and subcutaneous tissues below this with the skin being closed directly on top of it. This was an excellent fistula with good flow. At the end of the procedure, blood loss was less than 25 mL. The skin was closed as mentioned. Operation carried out was revision of AV fistula of the left arm with basilic vein transposition. Ramses Correa Jr., MD cc: Kandice Palacio MD; Alondra Mcclelland MD
== END 2018-07-02 16:11 | disposition home or self-care (01) ==
LOC: C.SDS 07:47
PROVIDERS: ATTEND Surgery Vascular Surgery
DX: N18.6 End stage renal disease (principal)
CPT/HCPCS: 36415; 36819; 80048; 82948; J0690; J2370; J2704; J3010